=== PATIENT | male | born 1945 | race Caucasian/White ===

== ENCOUNTER 2024-11-25 17:28 | Emergency (ER) | payer MEDICARE, SELFPAY ==
[2024-11-25 17:38] VITALS: BP 107/67; PULSE 70; RESP 16; TEMP 36.6; O2SAT 96; BMI 23.4
--- NOTE | 2024-11-25 18:00 | DI.RAD.S_ITS ---
PROCEDURE: XR HIP W PEL IF DONE BILAT 2V INDICATIONS: Fall on R hip, previous repair, Bilateral pain TECHNIQUE: 4 views of the hip were acquired. COMPARISON: None. FINDINGS: Bones: No fractures or dislocations. No suspicious bony lesions. The visualized pelvic ring appears intact. 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 Degenerative changes noted lower lumbar spine Soft tissues: No suspicious soft tissue calcifications or masses. IMPRESSION: Bilateral hip arthroplasty. No fracture or hardware failure Approved by: Johny Shannon M.D. on 11/25/2024 at 17:25
--- NOTE | 2024-11-25 19:17 | DI.CT.S_ITS ---
PROCEDURE: CT PEL WO CON INDICATIONS: hip pain, bilat THAs, fam requesting CT TECHNIQUE: Noncontrast 3 mm axial sections acquired through the bony pelvis, with coronal and sagittal reformatting. COMPARISON: [facility], CR, XR HIP W PEL IF DONE BILAT 2V, 11/25/2024, 17:56. FINDINGS: Image quality: Portions of the lower pelvis are suboptimally evaluated secondary to metallic streak artifact from hip arthroplasty. Bones: Hip arthroplasties. Macro hardware degenerative changes are present the. Soft tissues: No abnormal fluid collection or gross tissue mass. Inferior portions the pelvis are obscured secondary to artifact. Moderate colonic stool.. IMPRESSION: No visualized fracture or dislocation. Bilateral hip arthroplasties without gross evidence hardware fracture or loosening. Dictated by: Cass eLdbetter M.D. on 11/25/2024 at 20:51 Approved by: Cass Ledbetter M.D. on 11/25/2024 at 20:53
[2024-11-25 20:15] VITALS: BP 102/64; PULSE 81; RESP 17; O2SAT 95
--- NOTE | 2024-11-25 21:17 | PC.WOUNDPHOT ---
Patient requesting to leave. Educated on risk vs benefit of staying. Educated on when to seek re-evaluation. Given information on mychart. Left under own power.
== END 2024-11-25 21:18 | disposition left against medical advice (07) ==
PROVIDERS: Emergency Provider Emergency Medicine
DX: S79.911A Unspecified injury of right hip, initial encounter (principal); W01.0XXA Fall on same level from slipping, tripping and stumbling without subsequent striking against object, initial encounter; Z79.01 Long term (current) use of anticoagulants
CPT/HCPCS: 72192; 73521; 99281